=== PATIENT | female | born 1980 | race Caucasian/White ===

== ENCOUNTER 2017-07-10 21:35 | Emergency (ER) | payer MEDICAID ==
[~2017-07-10] VITALS: Ht 160 cm; Wt 68.0 kg
[~2017-07-10 21:35] MED LIST: PREN-385 PO
[2017-07-10 21:55] VITALS: BP 151/90
--- NOTE | 2017-07-11 00:11 | NUR ---
TO ER BED 4
--- NOTE | 2017-07-11 00:12 | NUR ---
PATIENT PRESENTS TO ED WITH C/O MID AB PAIN RADIATING TO THE BILAT SIDES. PT STATES PAIN FEELS LIKE CRAMPING WITH DIARRHEA . PT DENIES N/V/; SKIN IS PINK/WARM/DRY; AAOX4 WITH EVEN AND STEADY GAIT; LUNGS CLEAR BL; HR EVEN AND REGULAR; PT DENIES ANY FEVER, CP, SOB, OR COUGH AT THIS TIME; PATIENT STATES PAIN OF 9/10 AT THIS TIME; VSS; PATIENT POSITIONED FOR COMFORT; HOB ELEVATED; BEDRAILS UP X2; BED DOWN. ER MD MADE AWARE OF PT STATUS.
--- NOTE | 2017-07-11 01:28 | NUR ---
Patient discharged with v/s stable. Written and verbal after care instructions given and explained. Patient alert, oriented and verbalized understanding of instructions. Ambulatory with steady gait. All questions addressed prior to discharge. ID band removed. Patient advised to follow up with PMD. Rx of ULTRAM 50MG given. Patient educated on indication of medication including possible reaction and side effects. Opportunity to ask questions provided and answered.
[2017-07-11 01:29] VITALS: BP 136/84
== END 2017-07-11 01:29 | disposition home or self-care (01) ==
LOC: MED 21:35
DX: R19.7 Diarrhea, unspecified (principal); R03.0 Elevated blood-pressure reading, without diagnosis of hypertension; Z79.899 Other long term (current) drug therapy
CPT/HCPCS: 81002; 81025; 99283